=== PATIENT | female | born 1975 | race Caucasian/White ===

== ENCOUNTER → 2018-07-19 | Outpatient (CLI) | payer OTHER ==
--- NOTE | 2018-07-19 10:37 | MM ---
Reason for exam: clinical finding. Last mammogram was performed 3 years and 4 months ago. History: Family history of breast cancer in paternal grandmother. Taking hormonal contraceptives for 1 year beginning at age 39. Indicated problem(s): lump or thickening and pain in the right breast. Physical Findings: Nurse did not find any significant physical abnormalities on exam. MG Diagnostic Mammo w CAD [facility] Bilateral CC and MLO view(s) were taken. Prior study comparison: March 23, 2015, bilateral MG screening mammo w CAD. The breast tissue is heterogeneously dense. This may lower the sensitivity of mammography. Stable dermal calcifications in the left breast. There is no discrete abnormality including area of concern. No significant new findings when compared with previous films. These results were verbally communicated with the patient and result sheet given to the patient on 07/19/18. ASSESSMENT: Benign, BI-RAD 2 RECOMMENDATION: Routine screening mammogram of both breasts in 1 year. Manage patient on a clinical basis.
== END | disposition home or self-care (01) ==
LOC: RADMAMWWP 07:28
PROVIDERS: ATTEND Family Medicine
DX: N63.10 Unspecified lump in the right breast, unspecified quadrant (principal)
CPT/HCPCS: 77066

== ENCOUNTER → 2020-07-12 | Outpatient (CLI) | payer OTHER ==
--- NOTE | 2020-07-12 15:06 | XR ---
EXAMINATION TYPE: XR knee complete RT DATE OF EXAM: 07/12/2020 CLINICAL HISTORY: pain TECHNIQUE: Three views of the right knee are obtained. COMPARISON: None. FINDINGS: There is no acute fracture/dislocation. The tri-compartment joint spaces appear within no rmal limits. Partial calcification lateral collateral ligament. The overlying soft tissue appears un remarkable. IMPRESSION: There is no acute fracture or dislocation.ICD 10 NO FRACTURE, INITIAL EVALUATION
== END | disposition home or self-care (01) ==
LOC: RADXRMAIN 14:21
PROVIDERS: ATTEND Family Medicine
DX: S80.01XA Contusion of right knee, initial encounter (principal)

== ENCOUNTER 2020-07-14 06:19 | Emergency (ER) | payer OTHER ==
--- NOTE | 2020-07-14 06:57 | XR ---
EXAMINATION TYPE: XR hand complete LT DATE OF EXAM: 07/14/2020 CLINICAL HISTORY: Injury with pain TECHNIQUE: Frontal, lateral and oblique images of the left hand are obtained. COMPARISON: None. FINDINGS: There is no acute fracture/dislocation evident in the left hand. The joint spaces in the l eft hand appear within normal limits. The overlying soft tissue appears unremarkable. IMPRESSION: There is no acute fracture or dislocation in the left hand.
--- NOTE | 2020-07-14 08:06 | ED ---
Upper Extremity HPI - General Chief Complaint: Extremity Injury, Upper Stated Complaint: [facility] hand injury Time Seen by Provider: 07/14/20 06:24 Source: patient, RN notes reviewed Mode of arrival: ambulatory Limitations: no limitations - History of Present Illness Initial Comments: 45-year-old female presents emergency Department chief left hand pain. Patient states she had an injury that happened a few days ago. 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 Patient states that is very painful but has given a few days and no improvement. Patient states that there is some bruising. Patient is right-hand dominant. - Related Data Home Medications Medication Instructions Recorded Confirmed HYDROcodone/APAP 10-325MG [[place] 1 each PO Q4HR PRN 04/17/15 04/17/15 10] Previous Rx's Medication Instructions Recorded Naproxen [Naprosyn] 500 mg PO Q12HR #24 tab 04/17/15 Ibuprofen [Motrin] 600 mg PO Q8HR PRN #30 tab 07/14/20 Allergies Allergy/AdvReac Type Severity Reaction Status Date / Time adhesive tape AdvReac Rash/Hives Verified 07/14/20 06:28 Review of Systems ROS Statement: Those systems with pertinent positive or pertinent negative responses have been documented in the HPI. ROS Other: All systems not noted in ROS Statement are negative. Past Medical History Past Medical History: No Reported History History of Any Multi-Drug Resistant Organisms: None Reported Past Surgical History: Section Past Psychological History: No Psychological Hx Reported Smoking Status: Current every day smoker Past Alcohol Use History: Occasional Past Drug Use History: None Reported General Exam Limitations: no limitations General appearance: alert, in no apparent distress Head exam: Present: atraumatic, normocephalic, normal inspection Eye exam: Present: normal appearance, PERRL, EOMI. Absent: scleral icterus, conjunctival injection, periorbital swelling Respiratory exam: Present: normal lung sounds bilaterally. Absent: respiratory distress, wheezes, rales, rhonchi, stridor Cardiovascular Exam: Present: regular rate, normal rhythm, normal heart sounds. Absent: systolic murmur, diastolic murmur, rubs, gallop, clicks Extremities exam: Present: other (left hand ecchymosis, tenderness palpation of the fourth and fifth are carpal region full range of motion neurovascular intact) Skin exam: Present: warm, dry, intact, normal color. Absent: rash Course Vital Signs 07/14/20 06:26 Temperature 97.9 F Pulse Rate 70 Respiratory 16 Rate Blood Pressure 132/77 O2 Sat by Pulse 98 Oximetry Medical Decision Making - Medical Decision Making X-ray is negative for acute fracture. Patient has a left hand contusion. Patient we discharged in stable condition she was prescribed ibuprofen. Patient states she feels she is able to complete her job does not need time off at this time. Disposition Clinical Impression: Contusion of left hand Disposition: HOME SELF-CARE Condition: Stable Instructions (If sedation given, give patient instructions): Contusion in Adults (ED) Additional Instructions: Please return to the Emergency Department if symptoms worsen or any other concerns. Prescriptions: Ibuprofen [Motrin] 600 mg PO Q8HR PRN #30 tab PRN Reason: Pain Is patient prescribed a controlled substance at d/c from ED?: No Referrals: Quan Oneil MD [Primary Care Provider] - 1-2 days Time of Disposition: 07:02
[2020-07-14 08:09] VITALS: BP 132/77; PULSE 70; RESP 16; TEMP 97.9
== END 2020-07-14 07:12 | disposition home or self-care (01) ==
LOC: EC 06:19
DX: S60.222A Contusion of left hand, initial encounter (principal); F17.200 Nicotine dependence, unspecified, uncomplicated; Z91.048 Other nonmedicinal substance allergy status; W22.01XA Walked into wall, initial encounter; Y92.69 Other specified industrial and construction area as the place of occurrence of the external cause; Y99.0 Civilian activity done for income or pay
CPT/HCPCS: 99283

== ENCOUNTER → 2023-11-05 | Outpatient (CLI) | payer OTHER ==
--- NOTE | 2023-11-05 08:54 | MM ---
Reason for Exam: Clinical finding. Last mammogram was performed 5 year(s) and 4 month(s) ago. Indicated Problems: Pain of the right side (Focal) for 1 Month(s). Patient History: Menarche at age 14. First Full-Term at age 18. Patient has history of breast feeding. Currently using Hormonal Contraceptives, beginning at age 39 for 1 year. Paternal grandmother had breast cancer. Last menstrual period: 11/02/2023 Risk Values: Joyce 5 year model risk: 0.6%. NCI Lifetime model risk: 6.9%. Prior Study Comparison: 03/23/2015 Bilateral Screening Mammogram, [facility]. 07/19/2018 Bilateral Diagnostic Mammogram, [facility]. Tissue Density: There are scattered fibroglandular densities. Findings: Analyzed By CAD. Asymmetric density outer aspect of the left breast disperses on additional views compatible with superimposition shadow. Nipple piercing on the right. Otherwise, no significant mass, suspicious microcalcification, or other discrete abnormality is seen. Overall Assessment: Benign, BI-RAD 2 Management: Screening Mammogram of both breasts in 1 year. Further clinical management of patient's right-sided breast pain. Results were given to the patient verbally at the time of exam. Patient should continue monthly self-breast exams. A clinical breast exam by your physician is recommended on an annual basis. This exam should not preclude additional follow-up of suspicious palpable abnormalities. Note on Joyce scores and lifetime risk: 1. A Joyce score greater than 3% is considered moderate risk. If this is the case, consider specialist referral to assess eligibility for a risk reducing agent. 2. If overall lifetime risk for the development of breast cancer is 20% or higher, the patient may qualify for future screening with alternating mammogram and breast MRI. Electronically signed and approved by: Jarrett Castañeda M.D. Radiologist
== END | disposition home or self-care (01) ==
LOC: RADMAMWWP 08:10
PROVIDERS: ATTEND Family Medicine
DX: R92.323 Mammographic fibroglandular density, bilateral breasts (principal); N64.4 Mastodynia; Z80.3 Family history of malignant neoplasm of breast
CPT/HCPCS: 77066; G0279; 77062